=== PATIENT | male | born 1980 | race Caucasian/White ===

== ENCOUNTER 2018-02-26 15:05 | Emergency (ER) | payer OTHER ==
[~2018-02-26] VITALS: Ht 175.3 cm; Wt 95.0 kg
[~2018-02-26 15:05] MED LIST: LOSA25TA25; ONDA4TAB12; OXYC-307
--- NOTE | 2018-02-26 15:36 | NUR ---
PT BIB EMS ONLEGAL HOLD [facility]. PER REPORT, PT HAS BEEN DRINKING HEAVILY, MADE STATMENTS TO FAMILY MEMBERS ABOUT SHOOTING HIMSELF. FAMILY CALLED WITH CONCERNS REGARDING SAFETY OF PT. UPON ED ARRIVAL PT DENIES ANY SI, STATING, "I WAS DRINKING AND I JUST FUCKED UP." PT DENIES ANY HX OF SI OR SA. ALL PERSONAL BELONINGS REMOVED AND PLACED IN LOCKED STORAGE, 1 BAG. ROOM SECURED. SITTER IN PLACE. PT AMBULATORY TO BATHROOM WITH STEADY GAIT.
--- NOTE | 2018-02-26 15:41 | NUR ---
PT REPORT FROM LIANNA OJEDA. PT CARE ASSUMED.
--- NOTE | 2018-02-26 16:00 | NUR ---
PT'S MOM, GILSON CHILDERS, CALLED FOR STATUS REPORT. GILSON'S TEL [phone], 04/03/1958). GILSON STATES "I'M THE ONE WHO CALLED 911" INFORMED GILSON THAT PERMISSION FROM PT IS NEEDED PRIOR TO INFORMATION BEING PROVIDED. WILL CONSULT PT & CALL GILSON BACK
--- NOTE | 2018-02-26 16:05 | NUR ---
LAB CALLED ED; URINE RECEIVED FOR PT, BUT NO ORDER. WILL CONSULT ERP
--- NOTE | 2018-02-26 16:30 | NUR ---
PT RESTING QUIETLY ON BED, ROOM SECURE, SITTER OUTSIDE ROOM
[2018-02-26 16:57] LABS: BASOPHILS # (AUTO) 0.05 x10^3/uL (0-0.1); BASOPHILS % (AUTO) 0 % (0-1); EOSINOPHILS % (AUTO) 0 % (1-7); LYMPHOCYTES # (AUTO) 1.39 x10^3/uL (1-3.4); LYMPHOCYTES % (AUTO) 8 % (22-44); MD NO; MEAN CORPUSCULAR VOLUME 94.3 fL (81-97); MEAN PLATELET VOLUME 7.9 fL (7.4-10.4); MONOCYTES # (AUTO) 0.63 x10^3/uL (0.2-0.8); MONOCYTES % (AUTO) 4 % (2-9); NEUTROPHILS # (AUTO) 14.63 x10^3/uL (1.8-6.8); NEUTROPHILS % (AUTO) 88 % (42-75); PLATELET COUNT 233 x10^3/uL (130-400); RED BLOOD COUNT 5.74 x10^6/uL (4.38-5.82); RED CELL DISTRIBUTION WIDTH 14.3 % (9.4-14.8)
[2018-02-26 17:04] LABS: ALANINE AMINOTRANSFERASE 66 U/L (12-78); ALBUMIN 4.1 g/dL (3.4-5.0); ANION GAP 13 mmol/L (5-15); CALCIUM 8.6 mg/dL (8.5-10.1); CHLORIDE 107 mmol/L (98-107); CREATININE 0.99 mg/dL (0.7-1.3)
[2018-02-26 17:06] LABS: ALKALINE PHOSPHATASE 51 U/L (45-117); BILIRUBIN,TOTAL 0.7 mg/dL (0.2-1.0); TOTAL PROTEIN 7.5 g/dL (6.4-8.2)
--- NOTE | 2018-02-26 17:10 | NUR ---
PT SITTING ON END OF BED, DEMANDING TO BE RELEASED; INFORMED OF HOLD BY KANDICE LEWIS TECH. PT DENIES SI. PT ANGRY & ARGUMENTATIVE. INFORMED PT THAT HIS MOM CALLED ASKING FOR PT STATUS; VERBAL PERMISSION TO RELEASE INFORMATION PROVIDED. PT REQUESTING HIS CLOTHES AND TOBACCO CHEW. INFORMED PT THAT HE MAY NOT HAVE THEM BACK, YET. WILL CONSULT DR PERSON ABOUT PT STATUS. Addendum: 02/26/18 at 1713 by ROLA SITTER OUTSIDE ROOM.
--- NOTE | 2018-02-26 17:12 | NUR ---
PER DR PERSON, PT ON LEGAL HOLD FROM POL[employer]. ERP WILL SPEAK W/ RETOUCHER PHOTOENGRAVING RE: PT - PT TO BE INFORMED. REPEAT BREATHALYZER TO BE DONE.
[2018-02-26 17:15] LABS: AMPHETAMINE SCREEN, URINE Negative (Negative); BARBITURATE SCREEN, URINE Negative (Negative); BENZODIAZEPINE SCREEN, URINE Negative (Negative); CANNABINOID SCREEN, URINE Negative (Negative); COCAINE SCREEN, URINE Negative (Negative); METHADONE SCREEN, URINE Negative (Negative); OPIATE SCREEN, URINE Negative (Negative)
[2018-02-26 17:16] LABS: ACETAMINOPHEN < 2 mcg/mL (10-30); SALICYLATE LEVEL < 1.7 mg/dL (2.8-20.0)
--- NOTE | 2018-02-26 17:16 | NUR ---
PT AMBULATORY TO [place] PHONE; RETURNED TO ROOM W/OUT INCIDENT
--- NOTE | 2018-02-26 17:29 | NUR ---
PT REPORT TO ROCHELLE ROBERTS RN. PT CARE TRANSFERRED.
--- NOTE | 2018-02-26 17:44 | NUR ---
PT. SPOKE WITH DR. PERSON. PT. DENIES SI AND STATES HE DOESN'T RECALL MAKING THOSE STATEMENTS. PT. IS A & O X 4 SPEAKING CLEARLY AT THIS TIME. PT. WAS GIVEN DISCHARGE INSTRUCTIONS WITH UNDERSTANDING VERBALIZED. PT. REMAINS CALM AND COOPERATIVE, GAIT STEADY. PT. WAS GIVEN HIS BELONGINGS. PT. WAS AMBULATORY TO THE DISCHARGE DESK.
[2018-02-26 17:48] VITALS: BP 162/108
--- NOTE | 2018-02-26 17:51 | NUR ---
DR. PERSON IS AWARE OF THE PT.'S VITALS. STATES IT IS OK TO DISCHARGE THE PT. HOME. LIANNA ROMERO IS THE LUNCH RN BREAKING THE PRIMARY CARE RN JACQUES. PT. IS NOT EXPRESSING ANY THOUGHTS OF SELF HARM OR HARM TO OTHERS AT THIS TIME.
== END 2018-02-26 17:52 | disposition home or self-care (01) ==
LOC: ED 17:15
DX: F10.229 Alcohol dependence with intoxication, unspecified (principal); R45.851 Suicidal ideations; Y90.9 Presence of alcohol in blood, level not specified
CPT/HCPCS: 36415; 80053; 80307; 80329; 85025; 99283; G0480

== ENCOUNTER 2018-03-04 07:45 | Emergency (ER) | payer OTHER ==
[~2018-03-04] VITALS: Ht 177.8 cm; Wt 96.1 kg
[2018-03-04] MEDS ORDERED: SODIUM CHLORIDE FLUSH 10ML SYR IVF ONE (08:30)
[2018-03-04] MEDS ORDERED: ONDANSETRON 2MG/ML, 2ML IVPush ONE (08:30)
[2018-03-04 08:49] LABS: BASOPHILS # (AUTO) 0.03 x10^3/uL (0-0.1); BASOPHILS % (AUTO) 0 % (0-1); EOSINOPHILS # (AUTO) 0.06 x10^3/uL (0-0.4); EOSINOPHILS % (AUTO) 1 % (1-7); LYMPHOCYTES # (AUTO) 2.18 x10^3/uL (1-3.4); LYMPHOCYTES % (AUTO) 23 % (22-44); MD NO; MEAN CORPUSCULAR HEMOGLOBIN 32.5 pg (27.5-34.5); MEAN CORPUSCULAR HGB CONC 34.6 g/dL (33.2-36.2); MEAN CORPUSCULAR VOLUME 94.1 fL (81-97); MEAN PLATELET VOLUME 7.6 fL (7.4-10.4); MONOCYTES # (AUTO) 0.66 x10^3/uL (0.2-0.8); MONOCYTES % (AUTO) 7 % (2-9); NEUTROPHILS # (AUTO) 6.46 x10^3/uL (1.8-6.8); NEUTROPHILS % (AUTO) 69 % (42-75); PLATELET COUNT 189 x10^3/uL (130-400); RED BLOOD COUNT 5.07 x10^6/uL (4.38-5.82); RED CELL DISTRIBUTION WIDTH 13.7 % (9.4-14.8)
[2018-03-04 08:59] LABS: ALANINE AMINOTRANSFERASE 47 U/L (12-78); ALBUMIN 4.2 g/dL (3.4-5.0); ANION GAP 6 mmol/L (5-15); CALCIUM 9.2 mg/dL (8.5-10.1); CHLORIDE 105 mmol/L (98-107); CREATININE 0.93 mg/dL (0.7-1.3)
[2018-03-04] MEDS ORDERED: SODIUM CHLORIDE 0.9% 1,000ML IVBOLUS ONE (09:00)
[2018-03-04] MEDS ORDERED: FAMOTIDINE 20 MG/2 ML IVP ONE (09:00)
[2018-03-04 09:01] LABS: ALKALINE PHOSPHATASE 46 U/L (45-117); BILIRUBIN,TOTAL 0.5 mg/dL (0.2-1.0); TOTAL PROTEIN 7.2 g/dL (6.4-8.2)
[2018-03-04] MEDS ORDERED: FAMOTIDINE 20 MG/2 ML ONE (09:05)
[2018-03-04] MEDS ORDERED: MORPHINE SULFATE 4 MG/ML, 1ML ONE ×2 (09:05→10:31)
[2018-03-04] MEDS ORDERED: ONDANSETRON 2MG/ML, 2ML ONE (09:05)
[2018-03-04] MEDS: MORPHINE SULFATE 4 MG/ML, 1ML IVPush PRN ×2 (09:24→10:42)
--- NOTE | 2018-03-04 10:42 | NUR ---
PAIN REMAINS AFTER INITIAL MEDS REMEDICATED W MS FOR PAIN CONTROL
[2018-03-04 11:48] VITALS: BP 142/80
== END 2018-03-04 11:50 | disposition home or self-care (01) ==
LOC: ED 10:25
DX: K85.20 Alcohol induced acute pancreatitis without necrosis or infection (principal); R11.2 Nausea with vomiting, unspecified
CPT/HCPCS: 36415; 76700; 80053; 83690; 85025; 93005; 96361; 96374; 96375; 96376; 99284; J2405; J3490; J7030

== ENCOUNTER 2018-06-18 21:15 | Emergency (ER) | payer OTHER ==
--- NOTE | 2018-06-18 21:19 | NUR ---
PT. CALLED BACK FOR TRIAGE. PT. STARTED TO ENTER TRIAGE ROOM AND LEFT TRHOUG THE FRONT DOOR. AMBULATORY WITH STEADY GAIT. THIS RN DID NOT UNDERSTAND WHAT PT. SAID PRIOR TO WALKING OUT THE DOOR.
--- NOTE | 2018-06-18 21:30 | NUR ---
SECURITY REPORTS WITNESSING PT. LEAVE FROM DROP OFF AREA IN HIS TRUCK.
== END 2018-06-18 21:33 | disposition left against medical advice (07) ==
LOC: ED 21:20
DX: R10.9 Unspecified abdominal pain (principal); Z53.21 Procedure and treatment not carried out due to patient leaving prior to being seen by health care provider

== ENCOUNTER 2018-08-18 10:17 | Emergency (ER) | payer SELFPAY ==
[~2018-08-18] VITALS: Ht 177.8 cm; Wt 95.5 kg
[2018-08-18 11:02] LABS: BASOPHILS # (AUTO) 0.02 x10^3/uL (0-0.1); BASOPHILS % (AUTO) 0 % (0-1); EOSINOPHILS # (AUTO) 0.18 x10^3/uL (0-0.4); EOSINOPHILS % (AUTO) 2 % (1-7); LYMPHOCYTES # (AUTO) 1.23 x10^3/uL (1-3.4); LYMPHOCYTES % (AUTO) 14 % (22-44); MD NO; MEAN CORPUSCULAR HEMOGLOBIN 32.7 pg (27.5-34.5); MEAN CORPUSCULAR HGB CONC 33.8 g/dL (33.2-36.2); MEAN CORPUSCULAR VOLUME 96.8 fL (81-97); MEAN PLATELET VOLUME 7.9 fL (7.4-10.4); MONOCYTES # (AUTO) 0.53 x10^3/uL (0.2-0.8); MONOCYTES % (AUTO) 6 % (2-9); NEUTROPHILS # (AUTO) 6.95 x10^3/uL (1.8-6.8); NEUTROPHILS % (AUTO) 78 % (42-75); PLATELET COUNT 203 x10^3/uL (130-400); RED BLOOD COUNT 5.35 x10^6/uL (4.38-5.82); RED CELL DISTRIBUTION WIDTH 13.1 % (9.4-14.8)
[2018-08-18 11:11] LABS: ALBUMIN 4.5 g/dL (3.4-5.0); ANION GAP 8 mmol/L (5-15); CALCIUM 9.7 mg/dL (8.5-10.1); CHLORIDE 98 mmol/L (98-107); CREATININE 1.17 mg/dL (0.7-1.3)
[2018-08-18 11:14] LABS: TROPONIN I < 0.015 ng/mL (0.000-0.045)
[2018-08-18] MEDS ORDERED: LORazepam 1MG TABLET ONE (11:35)
[2018-08-18] MEDS ORDERED: LISINOPRIL 5 MG TABLET ONE (11:35)
--- NOTE | 2018-08-18 11:36 | NUR ---
PT RESTING IN [facility], LABS AND RAD COMPLETE. PT UP FOR RECHECK
[2018-08-18] MEDS ORDERED: LISINOPRIL 10 MG TABLET PO ONE (12:00)
[2018-08-18] MEDS ORDERED: LORazepam 1MG TABLET PO ONE (12:00)
[2018-08-18 12:09] VITALS: BP 144/92
== END 2018-08-19 12:10 | disposition home or self-care (01) ==
LOC: ED 12:04
DX: I10 Essential (primary) hypertension (principal)
CPT/HCPCS: 36415; 71045; 80048; 82040; 83880; 84484; 85025; 93005; 99284

== ENCOUNTER 2019-10-22 11:38 | Emergency (ER) | payer MEDICAID ==
[~2019-10-22] VITALS: Ht 177.8 cm; Wt 80.0 kg
[~2019-10-22 11:38] MED LIST changes: +ONDA-89; -ONDA4TAB12
--- NOTE | 2019-10-22 11:42 | NUR ---
PT BROUGHT IN BY RAKESH - PER REPORT PATIENT "WENT OUT FOR A LONG HIKE/WALK TO BURN OF FRUSTRATION, LEFT WHEN THE SUN CAME UP." ALMOST BACK TO HOUSE WHEN NEIGHBOR FOUND PATIENT PASSED OUT ON PROPERTY. PT DENIES CP, RECENT TRAUMA. PT STATES HE FEELS "LOOPY & DEHYDRATED"
[2019-10-22] MEDS ORDERED: SODIUM CHLORIDE 0.9% 1,000ML IVBOLUS ONE (12:00)
[2019-10-22 12:18] LABS: MEAN CORPUSCULAR HEMOGLOBIN 29.8 pg (27.5-34.5); MEAN CORPUSCULAR HGB CONC 32.8 g/dL (33.2-36.2); MEAN CORPUSCULAR VOLUME 90.7 fL (81-97); MEAN PLATELET VOLUME 7.9 fL (7.4-10.4); PLATELET COUNT 243 x10^3/uL (130-400); RED BLOOD COUNT 4.87 x10^6/uL (4.38-5.82); RED CELL DISTRIBUTION WIDTH 14.2 % (9.4-14.8)
[2019-10-22 12:30] LABS: ALBUMIN 4.3 g/dL (3.4-5.0); ANION GAP 9 mmol/L (5-15); CALCIUM 9.7 mg/dL (8.5-10.1); CHLORIDE 111 mmol/L (98-107); CREATININE 1.89 mg/dL (0.7-1.3)
[2019-10-22 12:36] LABS: MD YES
[2019-10-22 12:38] LABS: <PLATELET ESTIMATE> ADEQUATE; <PLT MORPHOLOGY> NORMAL PLT MORPH; <RBC MORPHOLOGY> NORMAL; BAND#(MANUAL) 0.77 x10^3/uL; BANDS%(MANUAL) 3 % (0-7); EOS#(MANUAL) 0.26 x10^3/uL (0.0-0.4); EOS% (MANUAL) 1 % (1-7); LYMPH#(MANUAL) 1.79 x10^3/uL (1-3.4); LYMPHS% (MANUAL) 7 % (22-44); MONOS#(MANUAL) 1.02 x10^3/uL (0.3-2.7); MONOS% (MANUAL) 4 % (2-9); SEG#(MANUAL) 21.68 x10^3/uL (1.8-6.8); SEGS% (MANUAL) 85 % (42-75)
[2019-10-22 13:09] VITALS: BP 112/67
--- NOTE | 2019-10-22 13:09 | NUR ---
RECEIVED REPORT FROM LIANNA EPSTEIN. PT RESTING ON [facility]. NADN. BARRERA.
== END 2019-10-22 13:55 | disposition home or self-care (01) ==
LOC: ED 12:39
DX: E86.0 Dehydration (principal); F11.10 Opioid abuse, uncomplicated; F15.10 Other stimulant abuse, uncomplicated; E16.2 Hypoglycemia, unspecified; I10 Essential (primary) hypertension; F17.200 Nicotine dependence, unspecified, uncomplicated
CPT/HCPCS: 36415; 80048; 82040; 85025; 96360; 99283; J7030